=== PATIENT | male | born 1960 | race Caucasian/White ===

== ENCOUNTER 2017-06-15 13:56 | Emergency (ER) | payer OTHER ==
[~2017-06-15] VITALS: Ht 180.3 cm; Wt 98.9 kg
[~2017-06-15 13:56] MED LIST: AMLODIPINE BES2.5 M1 PO; ASPIR LOW81 MG PO; CIPRO500 MG PO; CLINDAMYCI600 MG/50 IV; FLO4 PO; GLU500 PO; HUMULIN R100 U/1 M1 SC; LAC PO; LANTI SC; LANTI SQ; LANTUS SOLOS100 U/M1 SC; LANTUS SOLOS100 U/M1 SQ; LISNOPRIL PO; LYRICA100 M1 PO; LYRICA50 M1 PO; METFORMIN HCL1000 MG PO; METOPROLOL TART25 M1 PO; MOTRIN800 MG PO; NEU300 PO; NOR10T PO; PRAVASTATIN40 M1 PO; PRINIVIL10 MG PO; PROZ20 PO; ROC1I IM; ZESTRIL20 MG PO; [UNRECOGNIZED DRUG - CODE] PO
[2017-06-15 14:01] VITALS: Ht 180.3 cm; Wt 98.9 kg
[2017-06-15 15:26] LABS: BASOPHIL % 0.4 % (0-2); PLATELET COUNT 193 x10^3mcL (130-400); RED CELL DISTRIBUTION WIDTH 13.9 % (11.5-14.5)
[2017-06-15 15:33] LABS: CALCIUM 8.8 mg/dL (8.5-10.1); CARBON DIOXIDE 30.4 mmol/L (21-32); CHLORIDE SERUM 100 mmol/L (98-107); CREATININE SERUM 0.7 mg/dL (0.7-1.3); GFR1 > 60 mL/min; GLUCOSE SERUM 387 mg/dL (74-106); POTASSIUM SERUM 4.6 mmol/L (3.5-5.1); SODIUM SERUM 138 mmol/L (136-145)
[2017-06-15 15:41] LABS: ALBUMIN 3.4 g/dL (3.4-5.0); ALKALINE PHOSPHATASE 94 U/L (46-116); ALT/SGPT 29 U/L (16-63); AST/SGOT 17 U/L (15-37); BILIRUBIN TOTAL 0.41 mg/dL (0.20-1.00); CHOLESTEROL 198 mg/dL (<200); CHOLESTEROL/HDL RATIO 4.3; HDL CHOLESTEROL 46 mg/dL (40-60); TOTAL PROTEIN, SERUM 7.1 g/dL (6.4-8.2); TRIGLYCERIDES 102 mg/dL (<150)
[2017-06-15] MEDS ORDERED: INVOKANA300 MG PO (15:46)
[2017-06-15] MEDS ORDERED: TRULICITY1.5 MG/0.5 SC (15:47)
[2017-06-15 15:50] LABS: FREE T4 0.98 ng/dL (0.76-1.46); FREE THYROXINE INDEX 2.1 ug/dL (1.4-4.5); T4(THYROXINE) 6.1 ug/dL (4.7-13.3)
[2017-06-15] MEDS ORDERED: HUMALOG KW100 UNIT/1 SQ (15:53)
[2017-06-15] MEDS ORDERED: TRAMADOL HCL50 MG PO (15:56)
[2017-06-15] MEDS ORDERED: XANAX0.25 MG PO (15:57)
[2017-06-15 16:01] LABS: T3 TOTAL 0.93 ng/mL
[2017-06-15 18:01] VITALS: BP 156/78
== END 2017-06-15 18:02 | disposition home or self-care (01) ==
LOC: ED 13:56
PROVIDERS: Specialist
DX: E11.65 Type 2 diabetes mellitus with hyperglycemia (principal); I10 Essential (primary) hypertension; G62.9 Polyneuropathy, unspecified; Z88.5 Allergy status to narcotic agent
CPT/HCPCS: 82962; 84439; J3490; J7030; Q0092

== ENCOUNTER 2017-06-24 01:13 | Emergency (ER) | payer OTHER ==
[~2017-06-24] VITALS: Ht 177.8 cm; Wt 98.4 kg
[~2017-06-24 01:13] MED LIST changes: +HUMALOG KW100 UNIT/1 SQ; +INVOKANA300 MG PO; +TRAMADOL HCL50 MG PO; +TRULICITY1.5 MG/0.5 SC; +XANAX0.25 MG PO
[2017-06-24 01:35] VITALS: Ht 177.8 cm; Wt 98.4 kg
[2017-06-24 02:31] LABS: CALCIUM 9.2 mg/dL (8.5-10.1); CARBON DIOXIDE 33.1 mmol/L (21-32); CHLORIDE SERUM 100 mmol/L (98-107); CREATININE SERUM 0.9 mg/dL (0.7-1.3); GFR1 > 60 mL/min; GLUCOSE SERUM 197 mg/dL (74-106); POTASSIUM SERUM 3.6 mmol/L (3.5-5.1); SODIUM SERUM 138 mmol/L (136-145)
[2017-06-24 03:48] VITALS: BP 140/75
== END 2017-06-24 03:48 | disposition home or self-care (01) ==
LOC: ED 01:13
PROVIDERS: Emergency Medicine
DX: E11.40 Type 2 diabetes mellitus with diabetic neuropathy, unspecified (principal); I10 Essential (primary) hypertension; M79.642 Pain in left hand; M79.641 Pain in right hand; Z88.5 Allergy status to narcotic agent
CPT/HCPCS: 82962; J1885; J7030

== ENCOUNTER 2017-07-03 10:16 | Emergency (ER) | payer OTHER ==
[~2017-07-03] VITALS: Ht 177.8 cm; Wt 97.1 kg
[2017-07-03 11:42] VITALS: BP 141/88
== END 2017-07-03 11:42 | disposition home or self-care (01) ==
LOC: ED 10:16
DX: H54.61 Unqualified visual loss, right eye, normal vision left eye (principal); I10 Essential (primary) hypertension; E11.9 Type 2 diabetes mellitus without complications; G62.9 Polyneuropathy, unspecified; F17.200 Nicotine dependence, unspecified, uncomplicated; Z88.5 Allergy status to narcotic agent; Z71.6 Tobacco abuse counseling
CPT/HCPCS: 99406

== ENCOUNTER 2017-08-04 14:44 | Emergency (ER) | payer OTHER ==
[~2017-08-04] VITALS: Ht 177.8 cm; Wt 96.2 kg
[2017-08-04 15:04] VITALS: Ht 177.8 cm; Wt 96.2 kg
[2017-08-04 15:52] LABS: BASOPHIL % 0.2 % (0-2); PLATELET COUNT 237 x10^3mcL (130-400); RED CELL DISTRIBUTION WIDTH 14.3 % (11.5-14.5)
[2017-08-04 16:05] LABS: CALCIUM 8.8 mg/dL (8.5-10.1); CARBON DIOXIDE 26.9 mmol/L (21-32); CHLORIDE SERUM 102 mmol/L (98-107); GFR1 > 60 mL/min; GLUCOSE SERUM 214 mg/dL (74-106); POTASSIUM SERUM 4.2 mmol/L (3.5-5.1); SODIUM SERUM 137 mmol/L (136-145)
[2017-08-04 16:08] LABS: ALBUMIN 3.6 g/dL (3.4-5.0); ALKALINE PHOSPHATASE 90 U/L (46-116); ALT/SGPT 35 U/L (16-63); AST/SGOT 24 U/L (15-37); BILIRUBIN TOTAL 0.6 mg/dL (0.20-1.00); TOTAL PROTEIN, SERUM 7.7 g/dL (6.4-8.2); URIC ACID 4.5 mg/dL (3.5-7.2)
[2017-08-04 16:45] LABS: UA SPECIFIC GRAVITY 1.025 (1.005-1.035); microscopic required? YES; urine erythrocyte 3+ (NEGATIVE)
[2017-08-04 19:30] VITALS: BP 137/98
== END 2017-08-04 19:30 | disposition home or self-care (01) ==
LOC: ED 14:44
PROVIDERS: Emergency Medicine
DX: N39.0 Urinary tract infection, site not specified (principal); E11.65 Type 2 diabetes mellitus with hyperglycemia; I10 Essential (primary) hypertension; F17.210 Nicotine dependence, cigarettes, uncomplicated; Z71.6 Tobacco abuse counseling; Z88.5 Allergy status to narcotic agent
CPT/HCPCS: 99406; J0696; J2270; J2405; J7030

== ENCOUNTER 2017-11-16 20:35 | Emergency (ER) | payer OTHER ==
[~2017-11-16] VITALS: Ht 180.3 cm; Wt 94.8 kg
[2017-11-16 20:42] VITALS: Ht 180.3 cm; Wt 94.8 kg
[2017-11-16 20:57] LABS: BASOPHIL % 0.2 % (0-2); PLATELET COUNT 227 x10^3mcL (130-400); RED CELL DISTRIBUTION WIDTH 13.6 % (11.5-14.5)
[2017-11-16 21:04] LABS: CALCIUM 9.1 mg/dL (8.5-10.1); CARBON DIOXIDE 29.2 mmol/L (21-32); CHLORIDE SERUM 101 mmol/L (98-107); GFR1 > 60 mL/min; GLUCOSE SERUM 288 mg/dL (74-106); POTASSIUM SERUM 3.8 mmol/L (3.5-5.1); SODIUM SERUM 136 mmol/L (136-145)
[2017-11-16 21:10] LABS: ALKALINE PHOSPHATASE 119 U/L (46-116); ALT/SGPT 25 U/L (16-63); AST/SGOT 14 U/L (15-37); BILIRUBIN TOTAL 0.29 mg/dL (0.20-1.00); TOTAL PROTEIN, SERUM 7.2 g/dL (6.4-8.2)
[2017-11-16 21:14] LABS: ALBUMIN 3.3 g/dL (3.4-5.0)
[2017-11-16 21:29] LABS: microscopic required? YES; urine erythrocyte TRACE (NEGATIVE)
[2017-11-16 23:40] VITALS: BP 145/86
== END 2017-11-16 23:40 | disposition home or self-care (01) ==
LOC: ED 20:35
PROVIDERS: Emergency Medicine
DX: R42 Dizziness and giddiness (principal); I10 Essential (primary) hypertension; E11.42 Type 2 diabetes mellitus with diabetic polyneuropathy; E11.65 Type 2 diabetes mellitus with hyperglycemia; Z88.5 Allergy status to narcotic agent

== ENCOUNTER 2019-08-26 05:07 | Inpatient (IN) | payer OTHER ==
[~2019-08-26] VITALS: Ht 180.3 cm; Wt 83.9 kg
--- NOTE | 2019-08-26 05:27 | NUR ---
DR. CRUM AT BEDSIDE
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
[2019-08-26 05:54] LABS: BASOPHIL % 0.4 % (0-2); PLATELET COUNT 255 x10^3mcL (130-400); RED CELL DISTRIBUTION WIDTH 13.2 % (11.5-14.5)
[2019-08-26 06:01] LABS: CARBON DIOXIDE 27.8 mmol/L (21-32); CHLORIDE SERUM 94 mmol/L (98-107); CREATININE SERUM 1.2 mg/dL (0.7-1.3); GFR1 > 60 mL/min; GLUCOSE SERUM 406 mg/dL (74-106); POTASSIUM SERUM 3.9 mmol/L (3.5-5.1); SODIUM SERUM 133 mmol/L (136-145)
[2019-08-26 06:13] LABS: ALKALINE PHOSPHATASE 140 U/L (46-116); ALT/SGPT 19 U/L (16-63); AST/SGOT 19 U/L (15-37); BILIRUBIN TOTAL 0.7 mg/dL (0.20-1.00); C REACTIVE PROTEIN 7.8 mg/dL (<=0.9)
[2019-08-26 06:22] LABS: ALBUMIN 3.2 g/dL (3.4-5.0)
[2019-08-26 06:46] LABS: CK-MB < 0.5 ng/mL (0-3.6); CREATINE KINASE 63 U/L (39-308)
--- NOTE | 2019-08-26 06:53 | NUR ---
PATIENT STATES 7/10 PAIN ON LEFT BIG TOE, MADE DR. DECKER AWARE.
--- NOTE | 2019-08-26 07:00 | NUR ---
ADMINISTERED PAIN MEDICATION, PER ORDER, SEE EMAR. PT TOLERATED WELL, CALL LIGHT WITHIN REACH, WILL CONTINUE TO MONITOR.
[2019-08-26 07:05] LABS: ERYTHROCYTE SED RATE 89 mm/hr (0-20)
[2019-08-26 07:17] LABS: microscopic required? YES; urine erythrocyte 1+ (NEGATIVE)
--- NOTE | 2019-08-26 07:20 | NUR ---
REPORT GIVEN TO ALAN MERAZ FOR FURTHER CARE.
--- NOTE | 2019-08-26 07:43 | NUR ---
SLEEPING EASILY AWAKBLE DENIES PAIN, ANTIBIOTICS IN PROGRESS
--- NOTE | 2019-08-26 10:12 | NUR ---
RESTING IN BED, WPOUND DRESSED,ANTIBIOTICS FINISHED,,FEELS HUNGRY FOOD TRAY ORDERED
--- NOTE | 2019-08-26 12:38 | NUR ---
MEDICATED WITH INSULIN FOR HIGH BLOOD SUGAR, RESTING IN BED ,
--- NOTE | 2019-08-26 15:45 | NUR ---
ADADMITTED TO MEDSURG,AWAKE ALERT ORIENTED, IV PATENT HEP.LOCK,[facility]NA[facility] IN SR RESP. EASY ,
[2019-08-26 16:39] VITALS: BP 179/99
--- NOTE | 2019-08-26 16:52 | NUR ---
RECEIVED PT FROM ER, PT ADMIT FOR LEFT FOOT DM TOE INFECTION. PT IS A/O X4, VERBAL RESPONSIVE. LUNG SOUND CLEAR BILATREAL, NO COUGH, NO SOB. PT DENY ANY CHEST PAIN OR DISCOMFORT, BOWEL SOUND PRESENT ALL 4 QUARANTS, NO DISTENTION, NO TENDER. RIGHT BKA, LEFT FOOT NO EDEMA, THERE IS OPEN WOUND WITH NECROSIS TISSUE AT LEFT BIG TOE. APPLY NEW DRESSING. PT DENY ANY PAIN AT THIS TIME, IV AT LEFT AC, NO LEAKING, NO INFILTRATION. ALL ADLS ASSIST, ALL NEED MET, CALL LIGHT IN REACH, WILL CONTINUE TO MONITOR.
[2019-08-26 17:24] VITALS: BP 185/102
--- NOTE | 2019-08-26 19:00 | NUR ---
RECIEVED PT FROM AM SHIFT, PT IS A/O X4, VERBAL RESPONSIVE. LUNG SOUND CLEAR BILATERAL, NO COUGH, NO SOB. PT DENY ANY CHEST PAIN OR DISCOMFORT, BOWEL SOUND PRESENT ALL 4 QUADRANTS, NO DISTNETION, RIGHT BKA, LEFT LEG NO EDEMA, DRESSING AT BIG TOE IS INTACT, DENY ANY PAIN AT THIS MOMENT, IV AT LEFT AC, NO LEAKING, NO INFILTRAITON. ALL ADLS ASSIST, ALL NEED MET, CALL LIGHT IN REACH, WILL CONTINUE TO MONITOR.
[2019-08-26 21:17] VITALS: BP 174/84
--- NOTE | 2019-08-26 21:52 | NUR ---
CALLED DR. MARTINS REGARDING THE PT HAS HIGH B/P SINCE ADMISSION. AND PT STATE HE DIDN'T TAKE THE [place] B/P TODAY. NEW ORDER RECEIVED FROM LAKSHMI TOSCANO AND CARRIED OUT.
[2019-08-27 00:18] VITALS: BP 122/62
--- NOTE | 2019-08-27 00:20 | NUR ---
RECHECK THE B/P 122/64. WILL CONTINUE TO MONITOR THE PT.
--- NOTE | 2019-08-27 01:41 | NUR ---
Pt. received from 1:1 material handler 2nd shift RN, breathing even and unlabored on RA, no acute distress noted. Pt. dressing in tact on right foot, no pain at this time, or acute distress. will cont.t o monitor.
[2019-08-27 05:41] VITALS: BP 123/70
--- NOTE | 2019-08-27 05:44 | NUR ---
Pt. noted to be resting thorughout shift, no acute changes noted, will continue to monitor and endorse to next shift Rn.
[2019-08-27 06:27] LABS: CARBON DIOXIDE 25.9 mmol/L (21-32); CHLORIDE SERUM 100 mmol/L (98-107); CREATININE SERUM 1.2 mg/dL (0.7-1.3); GFR1 > 60 mL/min; GLUCOSE SERUM 225 mg/dL (74-106); POTASSIUM SERUM 3.6 mmol/L (3.5-5.1); SODIUM SERUM 135 mmol/L (136-145)
--- NOTE | 2019-08-27 08:00 | NUR ---
SHIFT ASSESSMENT DONE. PATIENT A/A/OX4; NO RESP DISTRESS ON RA. DENIED CHEST PAIN. RT BKA WITH PROSTHESIS AT BED SIDE. PATIENT ABLE TO WALK WITH PROSTHESIS. LT BIG TOE WOUND WITH DRSG INTACT. DENIED PAIN NOW. NPO PER ORDER, FOR POSSIBLE SURGERY TODAY. MRI LT FOOT IN PENDING. IV SITE TO LAC INTACT. CALL LIGHT IN REACH.
[2019-08-27 08:22] LABS: BASOPHIL % 0.6 % (0-2); PLATELET COUNT 217 x10^3mcL (130-400); RED CELL DISTRIBUTION WIDTH 13.3 % (11.5-14.5)
[2019-08-27 08:23] VITALS: BP 106/65
--- NOTE | 2019-08-27 09:41 | NUR ---
WOUND ASSESSMENT DONE TO LEFT HALLUX 4X3CM WITH 100% SOFT BLACK ESCHAR, JENNIFER WOUND SKIN INTACT, SWELLING WITH PURPLE DISCOLORATION. POC DISCUSSED WITH PT. PT. VERBALIZES UNDERSTANDING. POC DISCUSSED WITH PRIMARY RN, PER PRIMARY RN PENDING MRI RESULT AND DR. JEAN IS AWARE OF DEBRIDEMENT. RECOMMENDATIONS: -FOLLOW UP MRI RESULT AND SURGEON CONSULT -PAINT LEFT HALLUX DIABETIC ULCER WITH BETADINE , BID AND TRINA -KEEP LEFT FOOT INTERSPACES DRY AND CLEAN AT ALL TIME
[2019-08-27 12:18] VITALS: BP 115/71
[2019-08-27 16:32] VITALS: BP 145/74
--- NOTE | 2019-08-27 19:00 | NUR ---
DR. JEAN SAW PATIENT. RESUMED DINNER. NPO AFTER MN. SURGICAL CONSENT SIGNED. ENDORSED CARE TO [facility] NURSE.
--- NOTE | 2019-08-27 19:29 | NUR ---
Pt. received from day shift at this time, resting in bed. Pt. is a/o x4, ablet o make needs known,a ble to follow commands, no c/o h/a at this time. Pt. is breathing even and unlabored on RA, no s/o acute distress or pain/discomfort at this time. Pt. is MS no c/o of chest pain at this time, on heparin SQ BID. Pt. LBM today, no issues reported able to void, no c/o of pain or discomfort. Pt. noted to have R BKA w/ prosthesis at bedside. Pt. for L big toe amputation tomorrow s/p MRi done today on L foot. PT. IV site in tact w/ LAC, no s/o infiltration or redness, patent, dressing CdI. otherwise, pt. stable, safety in check, w/ call light placed within reach, bed set at lowest position, will cont. to monitor.
[2019-08-27 20:38] VITALS: BP 115/67
--- NOTE | 2019-08-27 23:04 | NUR ---
pt. has no acute distress noted. Pt. resting w/ eyes closed. Pt. states he is very tired today, didn't sleep much last night. Pt. noted to need verbal and light tactile stimuli to awaken, but when awaken is a/o x4 and able to make needs known. otherwise, pt. iv site patent, no c/o of pain. no drainage noted on LLE. Pt. heparin held d/t procedure tomorrow. Pt. stable, will cont. to monitor.
[2019-08-28 04:49] VITALS: BP 121/79
--- NOTE | 2019-08-28 05:29 | NUR ---
Pt. noted to be resting throughout shift, no acute distress noted. Pt. no c/o of pain at this time, dressing in tact on L big toe. Will provide w/ CHG wipes and marker for L foot at this time. Pt. stable, no c/o pain or chest pain throughout shift, will cont. to monitor and endorse care to next shift RN.
--- NOTE | 2019-08-28 06:14 | NUR ---
CHG Bath done on LLE and pt. marked the spot for his amputation for the L big toe. will cont. to monitor.
[2019-08-28 06:54] LABS: BASOPHIL % 0.5 % (0-2); PLATELET COUNT 235 x10^3mcL (130-400); RED CELL DISTRIBUTION WIDTH 13.6 % (11.5-14.5)
[2019-08-28 07:05] LABS: CARBON DIOXIDE 28.9 mmol/L (21-32); CREATININE SERUM 1.8 mg/dL (0.7-1.3)
--- NOTE | 2019-08-28 07:09 | NUR ---
Continuing care for pt. at this time. Pt. is a/o x4, able to make needs known, able to follow commands, no c/o h/a at this time. Pt. is breathing e/u, no s/o acute distress, on RA, no sob. Pt. has no c/o pain at this time or s/o discomfort. Pt. IV patent, dressing CDI, TKO at this time. Pt. noted to urinate in urinal, draining clear and yellow, as per MACHINE ROPE MAKER. Pt. able to sheron site for surgery at this time, CHG wipes applied to LLE. Dressing in tact, no drainage noted. Will cont. to monitor and prep pt. for surgery.
[2019-08-28 07:42] VITALS: BP 134/82
--- NOTE | 2019-08-28 10:33 | NUR ---
Spoke to Sonali from OR, gave report at this time. Will come to poultry picker pt. in 15-20 mins
--- NOTE | 2019-08-28 10:50 | NUR ---
Sonali from Or called at this time, stating that since there are 2 r/o for sx today, they have to push back one. THey don't know who will be pushed back at this time, so asked Lab when and where was specimen sent out. Lab states taht there is one p/u per day, and since swab was done at around 1700, p/u is for noon today and results can be received as fast as the end of the day today or tomorrow. Reported this to OR, Sonali, will cont. to monitor.
--- NOTE | 2019-08-28 13:40 | NUR ---
RECEIVED PATIENT BACK FROM SURGERY, AWAKE/ALERT, ABLE TO VERBALIZE NEEDS. DENIES PAIN TO LT FOOT, DOPLER WAS DONE AT BEDSIDE (+) BLOOD FLOW NOTED. LLE ELEVATED ON PILLOWS. QUESTIONS ADDRESSED. CALL LIGHT WITHIN REACH.
--- NOTE | 2019-08-28 13:43 | NUR ---
Report given to MARIYA Cage.
--- NOTE | 2019-08-28 14:46 | NUR ---
PATIENT AWAKEN NO C/O PAIN, OFFERERD SNACK. HEPARIN SQ GIVEN TO L ABDOMEN. LT FOOT DRESSING UNDONE, RE-INFORCED WIT TAPE, REMIND PT NOT TO BEAR WT ON L FOOT. TECH AT BEDSIDE PREPARED PT FOR US ARTERIAL LLE. NEEDS MET. CALL LIGHT WITHIN REACH.
--- NOTE | 2019-08-28 15:26 | NUR ---
1. Recommend continue CCHO 60 diet 2. Recommend glucerna BID for additional 440kcal and 20g protein.
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
--- NOTE | 2019-08-28 15:30 | NUR ---
SPOKE TO DR. MORIN REGARD SS ORDER FOR WHEELCHAIR FOR HOME AND WOUND CARE.
--- NOTE | 2019-08-28 16:31 | NUR ---
PT WANT TO GET UP TO BATHROOM FOR BM, INFORM PT PER DOCTOR, NO WEIGHT BEARING TO LLE, OFFERED BEDPAN PT INSIST OF GETTING UP, EXPLAINED TO PT THE WOUND IS FRESH CAN CAUSE BLEEDING AND DELAY HEALING, PT AGREE BEDPAN, ASSISTING ON BEDPAN, BS 308 GAVE 12 UNITS REGULAR SQ AND LACTINEX PO GIVEN.
[2019-08-28 17:21] VITALS: BP 141/80
--- NOTE | 2019-08-28 17:44 | NUR ---
PATIENT RESTING IN BED ON THE PHONE C/O 09/03 LLE GAVE TRAMADOL 50MG PO AND ZOSYN IVPB STARTED, IV TO LAC INTACT AND FLUSH WELL W/ 10ML NS, CONT TO MONITOR.
--- NOTE | 2019-08-28 18:58 | NUR ---
CALL US TECH, PER NIA US LIMIT TO LLE COMPLETED. PT RESTING IN BED COMPLAIN. CALL LIGHT WITHIN REACH.
--- NOTE | 2019-08-28 19:39 | NUR ---
RECEIVED PT LAYING IN BED WITH HOB ELEVATED. PT IS AAOX4. BREATHING IS EVEN AND UNLABORED ON RA. LUNG SOUNDS CTA. DENIES SOB AT THIS TIME. ABD IS SOFT AND NONDISTENDED. BS ACTIVE. DENIES N/V/D. VOIDS FREELY VIA URINAL. DENIES DYSURIA. R BKA, PROSTHESIS AT BEDSIDE. LLE DRSG S/P L FIRST TOE PARTIAL AMPUTATION, CDI. PT C/O 6/10 SHARP PAIN. WILL MEDICATE ACCORDINGLY PER MAR ORDER. LAC PATENT AND INTACT, NO ERYTHEMA NOTED. BED IN LOWEST POSITION. CALL LIGHT WITHIN REACH. WILL CONTINUE TO MONITOR.
[2019-08-28 20:38] VITALS: BP 153/88
--- NOTE | 2019-08-28 21:46 | NUR ---
ROUTINE MEDICATIONS ADMINISTERED AND TOLERATED WELL. NO ACUTE DISTRES NOTED. BREATHING IS EVEN AND UNLABORED ON RA. NO RESP DISTRESS NOTED. BS 304, ADMINISTERED 12 UNITS PER SLIDING SCALE. INFORMED PT WAITING FOR DR PADILLA TO CALL BACK REGARDING PAIN MEDICATION. PT VERBALIZES UNDERSTANDING. WILL MEDICATE SOON ORDERS ARE IN.
--- NOTE | 2019-08-28 23:02 | NUR ---
IV PULLED OUT. CATHETER IN PLACE. NEW IV INSERTED TO RFA. FLUSHED WITH 10 CC NS. NO ERYTHEMA NOTED. INFORMED PT ABOUT BEING UNABLE TO GIVE NORCO FOR PAIN MEDICATION D/T HIS ALLERGY OF COEDINE AND THAT HIS ONLY PAIN MEDICATION THAT CAN BE GIVEN IS TRAMADOL. PT VERBALIZES UNDERSTANDING. BED IN LOWEST POSITION. CALL LIGHT WITHIN REACH. WILL CONTINUE TO MONITOR.
--- NOTE | 2019-08-28 23:40 | NUR ---
TRAMADOL PRN ADMINSTERED AT THIS TIME FOR 7/10 PAIN. WILL REASSESS AND CHECK EFFECTIVENESS.
--- NOTE | 2019-08-29 02:33 | NUR ---
PT RESTING COMFORTABLY. BREATHING IS EVEN AND UNLABORED ON RA. NO RESP DISTRESS NOTED. WILL CONTINUE TO MONITOR.
[2019-08-29 05:13] VITALS: BP 154/84
--- NOTE | 2019-08-29 05:31 | NUR ---
PT RESTED COMFORTABLY THROUGHOUT THE NIGHT WITH NO ACUTE EVENTS OCCURRING DURING THE SHIFT. COMFORT AND SAFETY MEASURES MAINTAINED. ALL NEEDS ASSESSED AND ATTENDED TO. WILL CONTINUE TO MONITOR AND ENDORSE CARE TO DAY SHIFT NURSE.
[2019-08-29 06:29] LABS: BASOPHIL % 0.8 % (0-2); PLATELET COUNT 232 x10^3mcL (130-400); RED CELL DISTRIBUTION WIDTH 13.3 % (11.5-14.5)
[2019-08-29 06:30] LABS: CALCIUM 8.2 mg/dL (8.5-10.1); CREATININE SERUM 1.5 mg/dL (0.7-1.3); POTASSIUM SERUM 3.7 mmol/L (3.5-5.1)
--- NOTE | 2019-08-29 06:44 | NUR ---
ADMINISTERED ULTRAM PRN PER MAY ORDER FOR 6/10 SHARP PAIN ON LLE. WILL REASSESS AND CHECK EFFECTIVENESS. DRSG TO LLE CHANGED. MINIMAL SEROSANGUINOUS DRAINAGE NOTED TO L FIRST TOE. WILL CONTINUE TO MONITOR.
--- NOTE | 2019-08-29 07:35 | NUR ---
RECEIVED PT FROM COUNTY CORONER RN. AOX4 ABLE TO MAKE NEEDS KNOWN. LUNGS CTA, DENIES SOB/COUGH, RESP E/U. BOWEL SOUNDS ACTIVE ABDOMEN SOFT/ROUND, DENIES N/V/D. R BKA PROSTHESIS AT BEDSIDE. DRESSING TO L BIG TOE CLEAN, WILL CHANGE DRESSING ORDERED. DENIES PAIN AT THIS TIME. IV SITE PATENT, CDI. CALL LIGHT IN REACH, WILL CONTINUE TO MONITOR.
[2019-08-29 08:26] VITALS: BP 156/77
[2019-08-29] MEDS ORDERED: LANTI SQ (10:43)
[2019-08-29 12:19] VITALS: BP 149/68
--- NOTE | 2019-08-29 14:34 | NUR ---
PER CASE MNGMT. WAITING FOR PATIENT FAMILY TO RECEIVE WC IN ORDER TO BE DC.
[2019-08-29 15:09] VITALS: BP 149/68
--- NOTE | 2019-08-29 15:53 | NUR ---
PT DC HOME WITH . INSTRUCTION GIVEN TO BOTH PT AND . INSTRUCTED REGARDING NEW MEDICATION TO TAKE AT HOME, INCLUDING NEW PRESCRIPTION FOR INSULIN LANTUS AND CURRENT MEDICATION TO STOP TAKING AT HOME, INCLUDING METFORMIN. BOTH WERE EDUCATED ON F/U APPOINTS THAT HAVE BEEN SCHEDULED, AND AWARE THAT HOME HEALTH WILL BE CONTACTING THEM TO SCHEDULE A VISIT. IV CATHETER DC AND INTACT. ALL QUESTIONS AND CONCERNS ANSWERED, NO COMPLICATIONS NOTED DURING DISCHARGE.
== END 2019-08-29 15:50 | disposition home health service (06) | DRG 617 ==
LOC: ED 05:07 → MU 08:15
PROVIDERS: Specialist; Surgery; ADMIT Internal Medicine; ATTEND Internal Medicine
PROC: 0Y6Q0Z3 Detachment at Left 1st Toe, Low, Open Approach (ICD-10-PCS; principal; 2019-08-28 11:30)
DX: E11.69 Type 2 diabetes mellitus with other specified complication (principal); M86.8X7 Other osteomyelitis, ankle and foot; L03.032 Cellulitis of left toe; Z11.59 Encounter for screening for other viral diseases; E11.51 Type 2 diabetes mellitus with diabetic peripheral angiopathy without gangrene; I10 Essential (primary) hypertension; Z89.511 Acquired absence of right leg below knee; Z88.6 Allergy status to analgesic agent; F41.9 Anxiety disorder, unspecified; F32.9 Major depressive disorder, single episode, unspecified; E11.40 Type 2 diabetes mellitus with diabetic neuropathy, unspecified; E11.65 Type 2 diabetes mellitus with hyperglycemia; Z83.3 Family history of diabetes mellitus; Z82.49 Family history of ischemic heart disease and other diseases of the circulatory system; Z80.3 Family history of malignant neoplasm of breast; Z79.899 Other long term (current) drug therapy; Z79.82 Long term (current) use of aspirin; Z79.4 Long term (current) use of insulin; M54.9 Dorsalgia, unspecified; Z20.828 Contact with and (suspected) exposure to other viral communicable diseases
CPT/HCPCS: 36600; 82962; 90715; G0378; J1644; J1815; J1885; J2250; J2543; J3010; J3370; J7030; J7040; J7050; Q0092; U0003-CS